=== PATIENT | female | born 1985 | race American Indian/Alaskan Native ===

== ENCOUNTER 2021-02-25 17:53 | Emergency (ER) | payer SELFPAY ==
[2021-02-25] MEDS ORDERED: LIDOCAINE-MPF (1%) 10 MG/1 ML VIAL 5 ML INFILTRATI ONE ×2 (20:54→23:15)
--- NOTE | 2021-02-25 20:58 | Event Note ---
ED Screening Note Date of service: 02/25/21 Time: 20:56 ED Screening Note: 35-year-old female presents to the ER today with complaints of dysuria, urinary frequency, low abdominal pain and back pain which started few days ago. She denies any abnormal vaginal bleeding or vaginal discharge. Her last menstrual cycle was the end of January 2021. She is not currently on control. She is sexually active. She denies any nausea, vomiting, fever, chills or any other symptoms at this time. Has medical history significant for thyroid disease and calcium deficiency. This initial assessment/diagnostic orders/clinical plan/treatment(s) is/are subject to change based on patients health status, clinical progression and re- assessment by fellow clinical providers in the ED. Further treatment and workup at subsequent clinical providers discretion. Patient/guardian urged not to elope from the ED as their condition may be serious if not clinically assessed and managed. Initial orders include: UA/hCG
[2021-02-25 22:24] LABS: HCG Qualitative,Urine Negative (Negative)
[2021-02-25 22:25] LABS: Bacteria,Urine 1+ /HPF (Negative); Bilirubin,Urine NEG (Negative); Blood,Urine NEG (Negative); Color,Urine Straw (Yellow); Protein,Urine <15 mg/dL mg/dL (Negative); Urobilinogen,Urine < 2.0 mg/dL (<2.0)
--- NOTE | 2021-02-25 22:57 | Emergency Department Report ---
ED Female HPI - General Chief complaint: Abdominal Pain Stated complaint: POSS STD Time Seen by Provider: 02/25/21 21:29 Source: patient Mode of arrival: Ambulatory Limitations: No Limitations - History of Present Illness Initial comments: Patient is a 35-year-old female presents emergency room complaints of urinary symptoms that began a few days ago. She has associated dysuria, urinary frequency, low back discomfort, lower abdominal discomfort. She denies any fever, nausea, vomiting, diarrhea, vaginal discharge, vaginal bleeding. Patient states that she was recently sexually active and is concerned for STDs. She states that her partner is having symptoms as well. Past medical history of hypothyroidism and calcium deficiency. No allergies to medicines. Last menstrual cycle end of January. - Related Data Previous Rx's Medication Instructions Recorded Last Taken Type Doxycycline Hyclate [Doxycycline 100 mg PO BID 7 Days #14 tab 02/25/21 Unknown Rx Hyclate TAB] metroNIDAZOLE [Flagyl] 500 mg PO BID 7 Days #14 tab 02/25/21 Unknown Rx Allergies Allergy/AdvReac Type Severity Reaction Status Date / Time No Known Allergies Allergy Verified 02/25/21 23:08 ED Review of Systems ROS: Stated complaint: POSS STD Other details as noted in HPI Comment: All other systems reviewed and negative ED Past Medical Hx - Past Medical History Previous Medical History?: Yes Additional medical history: Hypothyroid, Calcium Deficency - Surgical History Past Surgical History?: No - Medications Home Medications: Home Medications Medication Instructions Recorded Confirmed Last Taken Type Doxycycline Hyclate [Doxycycline 100 mg PO BID 7 Days #14 tab 02/25/21 Unknown Rx Hyclate TAB] metroNIDAZOLE [Flagyl] 500 mg PO BID 7 Days #14 tab 02/25/21 Unknown Rx ED Physical Exam - General Limitations: No Limitations General appearance: alert, in no apparent distress - Head Head exam: Present: atraumatic, normocephalic - Eye Eye exam: Present: normal appearance - ENT ENT exam: Present: mucous membranes moist - Respiratory Respiratory exam: Present: normal lung sounds bilaterally. Absent: respiratory distress, wheezes, rales, rhonchi, stridor, chest wall tenderness, accessory muscle use, decreased breath sounds, prolonged expiratory - Cardiovascular Cardiovascular Exam: Present: regular rate, normal rhythm, normal heart sounds. Absent: systolic murmur, diastolic murmur, rubs, gallop - GI/Abdominal GI/Abdominal exam: Present: soft, normal bowel sounds. Absent: distended, tenderness, guarding, rebound, rigid - Back Exam Back exam: Absent: CVA tenderness (R), CVA tenderness (L) - Neurological Exam Neurological exam: Present: alert, oriented X3 - Psychiatric Psychiatric exam: Present: normal affect, normal mood - Skin Skin exam: Present: warm, dry, intact ED Course Vital Signs 02/25/21 02/26/21 20:32 00:30 Temperature 98.6 F Pulse Rate 65 67 Respiratory 16 16 Rate Blood Pressure 175/99 Blood Pressure 161/101 [Right] O2 Sat by Pulse 98 100 Oximetry ED Medical Decision Making - Lab Data Vital Signs 02/25/21 02/26/21 20:32 00:30 Temperature 98.6 F Pulse Rate 65 67 Respiratory 16 16 Rate Blood Pressure 175/99 Blood Pressure 161/101 [Right] O2 Sat by Pulse 98 100 Oximetry Vital Signs 02/25/21 02/26/21 20:32 00:30 Temperature 98.6 F Pulse Rate 65 67 Respiratory 16 16 Rate Blood Pressure 175/99 Blood Pressure 161/101 [Right] O2 Sat by Pulse 98 100 Oximetry - Medical Decision Making Patient is a 35-year-old female presents emergency room complaints of urinary symptoms that began a few days ago. She has associated dysuria, urinary frequency, low back discomfort, lower abdominal discomfort. She denies any fever, nausea, vomiting, diarrhea, vaginal discharge, vaginal bleeding. Patient states that she was recently sexually active and is concerned for STDs. She states that her partner is having symptoms as well. Past medical history of hypothyroidism and calcium deficiency. No allergies to medicines. Last menstrual cycle end of January. Vitals with elevated blood pressure, patient is asymptomatic, encouraged primary care follow-up and lifestyle modifications, the up-to-date medical literature does not recommend emergently lowering a somatic elevated blood pressure. Patient has no abdominal or CVA tenderness on exam. UA shows small amount of white blood cells and trace leukocyte esterase. Symptoms could be related to STD versus UTI. Patient given ceftriaxone IM on the emergency department. Patient given prescription for Flagyl and doxycycline. Advised patient Please take medication as prescribed. Increase your water intake. Please take antibiotics with food and take to completion. Please have any partner tested and treated as well. Avoid sexual intercourse. Follow-up with the clinic or the health department in order to have a full STD panel. Return to emergency room for any new or worsening symptoms. Critical care attestation.: If time is entered above; I have spent that time in minutes in the direct care of this critically ill patient, excluding procedure time. ED Disposition Clinical Impression: Concern about STD in female without diagnosis UTI (urinary tract infection) Qualifiers: Urinary tract infection type: acute cystitis Hematuria presence: without hematuria Qualified Code(s): N30.00 - Acute cystitis without hematuria Disposition: TO HOME OR SELFCARE Is pt being admited?: No Does the pt Need Aspirin: No Condition: Stable Instructions: Safe Sex, Abdominal Pain (ED) Additional Instructions: Please take medication as prescribed. Increase your water intake. Please take antibiotics with food and take to completion. Please have any partner tested and treated as well. Avoid sexual intercourse. Follow-up with the clinic or the health department in order to have a full STD panel. Return to emergency room for any new or worsening symptoms. [facility] in [place], [place] Address: [address] [place] [address] [facility] in [place], [place] Address: [address] [place] [address] Prescriptions: Doxycycline Hyclate [Doxycycline Hyclate TAB] 100 mg PO BID 7 Days #14 tab metroNIDAZOLE [Flagyl] 500 mg PO BID 7 Days #14 tab Referrals: [facility] Depart [Outside] - 3-5 Days Time of Disposition: 22:59 Print Language: AMERICAN
[2021-02-26 00:52] VITALS: BP 161/101
== END 2021-02-26 00:30 | disposition home or self-care (01) ==
LOC: EDBD → ED 17:53
DX: N39.0 Urinary tract infection, site not specified (principal); E03.9 Hypothyroidism, unspecified
CPT/HCPCS: 81001; 81025; 87086; 96372; 99283; J0696